=== PATIENT | female | born 1940 | race Caucasian/White ===

== ENCOUNTER 2018-03-26 14:48 | Emergency (ER) | payer MEDICARE, OTHER, SELFPAY ==
[2018-03-26 14:51] VITALS: BP 144/77; PULSE 98; RESP 18; TEMP 36.7; O2SAT 98; BMI 24.0
--- NOTE | 2018-03-26 16:37 | ED_ITS ---
HPI - Extremity Injury (Lower) General Chief Complaint: Extremity Injury, Lower Stated Complaint: THINKS LEFT LEG IS INFECTED Time Seen by Provider: 03/26/18 15:50 History of Present Illness HPI Narrative: HPI 77-year-old female with a fused left ankle 2/2 open fracture ~5 years ago presents with 2 days of left erythema, warmth, swelling, and pain. Notes normal sensation in left foot. Denies fevers, chills, or malaise. Patient's prior open fracture led to joint effusion, was complicated by osteomyelitis due to Clostridium, and ultimate resolution with vancomycin and clindamycin (per patient). ROS with no recent constitutional symptoms. Exam Gen: Pleasant, nontoxic-appearing, resting comfortably. HEENT: NC, AT, PEERL, EOMI. Resp: Unlabored respirations with a normal work of breathing. Card: Extremities warm and well perfused. GI: Non-distended. : Deferred MSK: left leg visually normal with the exception of swelling, warmth, mild erythema, and tenderness without palpable fluctuance or crepitus predominantly over the medial ankle and extending over the anterior/medial distal tib-fib. Ankle is fused. 2+ DP pulse. All toes warm and well perfused with sensation intact to touch. Bedside ultrasound demonstrates subcutaneous cobblestoning without evidence of gas, abscesses, or foreign bodies. Neuro: AO x 3, no facial asymmetry, vision and hearing WNL. Heme/Lymph: Deferred Skin: Normal color with no visible lesions (other than noted above). Psych: Mood and affect appropriate. MDM Previous chart, nursing note, and vitals reviewed. A: 77-year-old female with a fused left ankle 2/2 open fracture ~5 years ago presents with 2 days of left erythema, warmth, swelling, and pain. DDx & Evaluation: exam consistent with cellulitis, no evidence of abscess or necrotizing fasciitis. Osteomyelitis was considered on the differential, however given short duration of symptoms this is unlikely. Patient is appropriate for an initial trial of oral antibiotics with prompt PCP follow-up for repeat evaluation. No evidence of septic arthritis. Patient prescribed clindamycin as she notes positive good success with it previously in no significant side effects. Exam is not congruent with DVT. Impression: cellulitis (please reference below for remainder of encounter information) Related Data Home Medications Medication Instructions Recorded Confirmed multivitamin 1 tab PO Q DAY #0 06/02/11 03/26/18 calcium carbonate-vitamin D3 1 tab PO QDAY #0 12/30/11 03/26/18 [Oyster Shell Calcium-Vit D3] latanoprost [Xalatan] [address]p [facility] HS #0 12/30/11 03/26/18 Bioequivalent Hormone 1 tab PO QPM 03/26/18 03/26/18 montelukast 10 mg PO QPM 03/26/18 03/26/18 multivitamin 1 tab PO DAILY 03/26/18 03/26/18 Allergies Allergy/AdvReac Type Severity Reaction Status Date / Time morphine Allergy Mild NAUSEA Verified 03/26/18 14:57 oxycodone [OXYCODONE] Allergy Mild Nausea Verified 03/26/18 14:57 PFSH Surgical History History of cataract removal with insertion of prosthetic lens History of hip replacement Status post tonsillectomy and adenoidectomy Family History Father CAD (coronary artery disease) Alcoholism Mother CVA (cerebral infarction) Diabetes mellitus Glaucoma Sister Alcoholism Social History Smoking Status: Never smoker Exam Initial Vital Signs Initial Vital Signs: Vital Signs Temperature 98.1 F 03/26/18 14:51 Pulse Rate 98 H 03/26/18 14:51 Respiratory Rate 18 03/26/18 14:51 Blood Pressure 144/77 H 03/26/18 14:51 Pulse Oximetry 98 03/26/18 14:51 Course Vital Signs - 8 hr 03/26/18 14:51 Temperature 98.1 F Pulse Rate 98 H Respiratory Rate 18 Blood Pressure 144/77 H Pulse Oximetry 98 Discharge Plan Departure Prescriptions: No Action multivitamin Tablet 1 tab PO Q DAY Qty: 0 RF: 0 latanoprost [Xalatan] 0.005 % drops 1 drp OPH[facility] HS Qty: 0 RF: 0 calcium carbonate-vitamin D3 [Oyster Shell Calcium-Vit D3] 1,250 MG/200 IU tablet 1 tab PO QDAY Qty: 0 RF: 0 multivitamin Tablet 1 tab PO DAILY RF: 0 montelukast 10 mg Tablet 10 mg PO QPM RF: 0 Bioequivalent Hormone 1 tab PO QPM RF: 0
[2018-03-26 16:53] VITALS: BP 137/83; PULSE 95; RESP 14; O2SAT 97
--- NOTE | 2018-03-26 17:17 | PC.NURSE ---
pt requesting to speak to provider before depart. Pt requesting blood work. Provider aware no new orders at this time.
[2018-03-26] MEDS: CLINDAMYCIN 150 MG CAPSULE 450 MG PO (17:22)
[2018-03-26 17:31] LABS: Add Manual Diff / Slide Review NO; Basophils Percent Auto 1.8 % (0-2); Eosinophils Percent Auto 1.4 % (2-4); Hematocrit 38.6 % (36-46); Hemoglobin 13.2 g/dL (12.0-16.0); Lymphocytes Percent Auto 13.7 % (25-40); Mean Corpuscular HGB Conc 34.3 % (30-36); Mean Corpuscular Hemoglobin 32.9 PG (26-34); Mean Corpuscular Volume 95.9 fL (80-100); Monocytes Percent Auto 11.2 % (3-14); Neutrophils Absolute Auto 7200 /uL (3000-5900); Neutrophils Percent Auto 71.9 % (50-75); Platelet Count 332 X10^3/uL (150-400); Red Blood Cell Count 4.02 X10^6/uL (4.0-5.2); Red Cell Distribution Width 12.8 % (11.6-14.8); White Blood Cell Count 10.1 X10^3/uL (4.5-11.0)
[2018-03-26 17:36] LABS: Blood Urea Nitrogen 15 mg/dL (7-17); Calcium 9.1 mg/dL (8.4-10.2); Carbon Dioxide 25 mmol/L (22-32); Chloride 104 mmol/L (98-107); Estimated Glomerular Filt Rate > 60.0 mL/min (>60); Glucose 108 mg/dL (80-110); HEMOLYSIS < 15 (0-50); Potassium 3.7 mmol/L (3.4-5.1); Sodium 141 mmol/L (137-145)
[2018-03-26 17:57] LABS: Procalcitonin < 0.05 ng/mL (<0.5)
== END 2018-03-26 18:14 | disposition home or self-care (01) ==
PROVIDERS: Emergency Medicine; Emergency Provider Emergency Medicine; Family Provider Acupuncturist; PCP Family Medicine
DX: L03.116 Cellulitis of left lower limb (principal)
CPT/HCPCS: 36591; 80048; 84145; 85025; 87040; 99282; 99283

== ENCOUNTER → 2018-03-30 14:44 | Outpatient (CLI) | payer MEDICARE, OTHER, SELFPAY ==
--- NOTE | 2018-03-30 14:48 | DI.RAD.S_ITS ---
PROCEDURE: XR ANKLE LT MIN 3V INDICATIONS: left ankle swelling h/o osteomyelitis TECHNIQUE: 3 views of the ankle were acquired. COMPARISON: Outside Facility, [facility], XR ANKLE 3V LEFT, 08/01/2012, 11:33. FINDINGS: Bones: Healed fracture deformity involving the distal radial metaphysis and distal fibula. There is fusion of the tibiotalar joint. Mild subtalar joint narrowing. Multiple lucencies involving the distal tibia likely related to remove surgical hardware. Periosteal reaction along the distal aspect of the tibia as well as the fibula suggestive of chronic osteomyelitis. No definitive bone erosion seen. Soft tissues are mottled in appearance. Soft tissues: No tibiotalar joint effusion. Achilles tendon appears normal. IMPRESSION: Healed fracture deformities of the distal tibia and fibula with fusion of the tibiotalar joint. Periosteal reaction along the distal fibula and tibia which may be related to chronic osteomyelitis. Correlate clinically. Although no bony erosions are seen, plain film radiography is relatively insensitive in the early detection of acute osteomyelitis and may not demonstrate radiographic change for 15 days. Indicated MRI or nuclear medicine bone scan could be performed. Mottled appearance of the soft tissues and cellulitis cannot be excluded. Recommend direct visualization. Dictated by: Amaury HUNT Interpreted: Dimitrios Eaton MD on 03/30/2018 at 15:14 Approved by: Dimitrios Eaton M.D. on 04/02/2018 at 9:50
[2018-03-30 15:19] LABS: Add Manual Diff / Slide Review NO; Basophils Percent Auto 1.5 % (0-2); Eosinophils Percent Auto 2.8 % (2-4); Hematocrit 36.7 % (36-46); Hemoglobin 12.4 g/dL (12.0-16.0); Lymphocytes Percent Auto 13.1 % (25-40); Mean Corpuscular HGB Conc 33.8 % (30-36); Mean Corpuscular Hemoglobin 31.5 PG (26-34); Mean Corpuscular Volume 93.4 fL (80-100); Neutrophils Absolute Auto 6700 /uL (3000-5900); Neutrophils Percent Auto 70.6 % (50-75); Platelet Count 417 X10^3/uL (150-400); Red Blood Cell Count 3.93 X10^6/uL (4.0-5.2); Red Cell Distribution Width 12.5 % (11.6-14.8); White Blood Cell Count 9.5 X10^3/uL (4.5-11.0)
[2018-03-30 15:36] LABS: Erythrocyte Sedimentation Rate 33 MM/HR (0-20)
[2018-03-30 16:50] LABS: C-Reactive Protein Quant 7.8 mg/dL (<1.0)
== END ==
PROVIDERS: PCP Family Medicine; Visit Provider Family Medicine
DX: L03.90 Cellulitis, unspecified (principal)
CPT/HCPCS: 36415; 73610; 85025; 85651; 86140

== ENCOUNTER → 2018-04-06 11:38 | Outpatient (CLI) | payer MEDICARE, OTHER, SELFPAY | PROVIDERS: Family Provider Acupuncturist; PCP Family Medicine; Visit Provider Family Medicine | DX: L03.90 Cellulitis, unspecified (principal); M86.9 Osteomyelitis, unspecified | CPT/HCPCS: 87070; 87077; 87147; 87186; 87205 ==

== ENCOUNTER → 2018-04-06 12:35 | Outpatient (CLI) | payer MEDICARE, OTHER, SELFPAY ==
--- NOTE | 2018-04-06 | OV.WND_ITS ---
Progress Note Details Patient Name: Maggie Lea Patient Number: [id number] PatientPatientDate: 04/06/2018 Clinician: Joslyn Kumari Clinician Cosigner: Shivani Lopez Physician / Food Service Lead: Shravan Guajardo SUBJECTIVE Chief Complaint This information was obtained from the patient Cellulitis of left lower extremity. Allergies oxycodone (Severity: Moderate, Reaction: nausea), morphine (Severity: Mild, Reaction: nausea) HPI This information was obtained from the patient The following HPI elements were documented for the patient's wound: Location: left leg Quality: surgical Severity: moderate Timing: constant 04/06/18. Seen by Dr. Guajardo. The patient was last seen in our clinic in 2011 for osteomyelitis of the distal left lo leg. About 10 days ago she developed cellulitis in this area and was started on clindamycin in our ER. On follow with her PCP today the area was draining and she was subsequently referred urgently to our clinic for review. S feels the lower leg erythema has improved considerably since starting clindamycin and she does not report feve or pain when bearing weight. She does report some pain along the Achilles tendon and reports that during her episode of osteomyelitis she had previously placed hardware removed. She also underwent hyperbaric oxygen therapy at the time. 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 Family History This information was obtained from the patient Cancer - Maternal Grandparents, Diabetes - Mother, Maternal Grandparents, Heart Disease - Mother, Father, Hypertension - Mother, Father, Stroke - Mother Social History This information was obtained from the patient Never smoker, Alcohol Use - 1/day, Caffeine Use - 2/day, Children - 2, Lives in - Private home, Marital Status - Single, Retired Past Medical History This information was obtained from the patient Patient has a medical history of: Asthma Glaucoma (Right Eye) Nasal Polyp-Right Nares Distal Fibula/Tibia Fracture Osteomyelitis (Left ankle) Surgical History This information was obtained from the patient Patient has a surgical history of: Tonsils and adenoids (As a child) THR Right - 07/07/2012 (Dr. Aguirre) OSS - 07/07/2011 Left Tibia fracture - 12/22/2011 (With [facility] Dr. Gaxiola) Bilateral cataracts with lense implants (In her 40's ) Complaints and Symptoms This information was obtained from the patient Patient complains of: General Notes: I have reviewed and concur with the Review of Systems and Past Family Social History documen completed by the clinician, I have reviewed and concur with the Wound Assessment document completed by th clinician Cardiovascular (Central/Peripheral): Lower extremity (leg) swelling Integumentary (Hair/Skin/Nails): Open Sore Musculoskeletal: Deformities Prior Wound History: Drainage, Erythema, Pain Patient denies complaints or symptoms related to: Constitutional Symptoms (General Health): Chills, Fever Ear/Nose/Mouth/Throat: Hearing Loss / Aid Neurological: Loss of Protective Sensation Psychiatric: Memory Loss Respiratory: Shortness of Breath General Notes: Believes she is up to date on tetanus. Medications Antacid (calcium carbonate) 200 mg calcium (500 mg) chewable tablet oral 1 1 tablet,chewable oral once daily lactobacillus acidophilus (bulk) 1 billion unit/gram powder miscellaneous 4 4 powder miscellaneous once daily Calcitrate-Vitamin D 315 mg-250 unit tablet oral 1 1 tablet oral once daily montelukast 10 mg tablet oral 1 1 tablet oral take at bedtime clindamycin HCl 150 mg capsule oral 1 1 capsule oral every 6 hours as needed Xalatan 0.005 % eye drops ophthalmic (eye) 1 1 drops ophthalmic (eye) once daily Adult One Daily Multivitamin 0.4 mg tablet oral tablet oral OBJECTIVE Constitutional BP elevated; Low grade fever; Alert and in no distress. Well developed. Alert. Clean appearing.. Height/Length: in (162.56 cm), Weight: 144.5 lbs (65.68 kgs), BMI: 24.8, Temperature: 99.0 ?F ( 37.22 ?C), Pulse: 88 bpm, Respiratory Rate: 16 breaths/min, Blood Pressure: 142/72 mmHg, Pulse Oximetry: 96 %. Ears, Nose, Mouth, and Throat: No clinically significant hearing loss on informal examination. Respiratory: No respiratory distress. Even respirations and without use of accessory muscles.. Cardiovascular: 1+ left lower extremity edema. Gastrointestinal (GI): Non-obese. Nondistended.. Musculoskeletal: Significant anterior left lower leg scar. Integumentary (Hair, Skin) Refer to appropriate clinician wound documentation for this visit; left distal lower leg ulcer extends to deep subc seropurulent drainage noted on probing; surrounding tissue edematous and fluctuant consistent with abscess. Wound #1 Left, Medial Leg is an acute Full Thickness Cellulitis and has received a status of Not Healed. Initial wound encounter measurements are 0.3cm length x 0.3cm width x 0.8cm depth, with an area of 0.09 sq cm an volume of 0.072 cubic cm. No tunneling has been noted. No sinus tract has been noted. No undermining has be noted. There is a copious amount of serous drainage noted which has no odor. The patient reports a wound louie level 0/10. The wound margin is attached. Wound bed has No epithelialization, No eschar, Yes slough, Yes brigh red, firm granulation. The periwound skin moisture is normal. The periwound skin color is normal. The periwound skin exhibited: Jorge The periwound skin did not exhibit: Brawny Induration, Excoriation, Induration, Callus, Crepitus, Fluctuance, Friable, Rash. The temperature of the periwound skin is Warm. Periwound skin does not exhibit signs or sympto of infection. Local Pulse is Palpable. Neurological: Cranial nerves grossly intact with symmetric function normal by informal observation.. 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 - In clinic only. Cleanser Cleanse Wound: - Normal saline and gauze. May use distilled water at home. May Shower. - Must cover in shower with cast protector (can be purchased at any local drug store) or plastic ba and tape. Dressings Cover and secure with: - Superabsorbent dressing, secured with conform wrap gauze. May use poise pads or ABD pads at home. Change Dressing: - Daily or more as needed to control drainage. Additional Orders: Follow-Up Appointments Return Appointment: - - Middle of next week. Other information: If you develop fever, chills, increased pain, drainage, redness or swelling please call our offi If after hours, respond to the ER. Should you experience any significant changes in your wound(s) or have any questions regarding your home care instructions please contact the wound center @ [phone]. If after keara contact your primary care physician or go to the hospital emergency room. Scribing Attestation I attest, as the nurse, that I scribed these orders for the physician. Laboratory: Culture Wound - Will call with culture results if any changes in antibiotics are required. General Notes: Referral being sent to an orthopedic surgeon in regards to a consult for surgical debridement of abscess. Please continue taking your clindamycin as prescribed. Supply order submitted through [employer]. Dressings should be delivered in the next 1-2 days. I've reviewed the clinician's documentation and agree with the evaluation and plan as written. Also, the patient refilled her clindamycin Rx for another 10 days. I've taken a deep wound culture and will adjust antibiotics accordingly. She also has an MRI scheduled for 04/17/18 however I'm referring her urgently to orthopedics for consideration of deep debridement with the possibility of recurrent chronic osteomyelitis. Electronic Signature(s) Signed By: Date: Shravan Guajardo MD 04/10/2018 12:06:17 Entered By: Shravan Guajardo on 04/08/2018 16:24:16
== END ==
PROVIDERS: Family Provider Acupuncturist; PCP Family Medicine; Visit Provider Internal Medicine
DX: L03.116 Cellulitis of left lower limb (principal); L97.822 Non-pressure chronic ulcer of other part of left lower leg with fat layer exposed
CPT/HCPCS: 87070; 87075; 87077; 87147; 87186; 87205; 99213

== ENCOUNTER → 2018-04-10 10:19 | Outpatient (CLI) | payer MEDICARE, OTHER, SELFPAY ==
--- NOTE | 2018-04-10 | OV.WND_ITS ---
Progress Note Details Patient Name: Maggie Lea Patient Number: [id number] PatientPatientDate: 04/10/2018 Clinician: Joslyn Kumari Clinician Cosigner: Shivani Lopez Physician / Investigation Division Captain: Shravan Guajardo SUBJECTIVE Chief Complaint This information was obtained from the patient Cellulitis of left lower extremity. Allergies oxycodone (Severity: Moderate, Reaction: nausea), morphine (Severity: Mild, Reaction: nausea) HPI This information was obtained from the patient The following HPI elements were documented for the patient's wound: Location: left leg Quality: surgical Severity: moderate Timing: constant 04/10/18. Seen by Dr. Guajardo. The patient feels the left lower leg swelling and pain have improved considerably si her visit last week as has the drainage from the overlying ulcer which appears to have resulted from an underly abscess that's now drainage spontaneously. She's scheduled to see Dr. Martines this Monday due to her history o chronic osteomyelitis at this site and states she had to reschedule her MRI that was moved forward to [facility] [place] 04/06/18. Seen by Dr. Guajardo. The patient was last seen in our clinic in 2011 for osteomyelitis of the distal left lo leg. About 10 days ago she developed cellulitis in this area and was started on clindamycin in our ER. On follow with her PCP today the area was draining and she was subsequently referred urgently to our clinic for review. S feels the lower leg erythema has improved considerably since starting clindamycin and she does not report feve or pain when bearing weight. She does report some pain along the Achilles tendon and reports that during her episode of osteomyelitis she had previously placed hardware removed. She also underwent hyperbaric oxygen therapy at the time. 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 Past Medical History This information was obtained from the patient Patient has a medical history of: Asthma Glaucoma (Right Eye) Nasal Polyp-Right Nares Distal Fibula/Tibia Fracture Osteomyelitis (Left ankle) Complaints and Symptoms This information was obtained from the patient Patient complains of: General Notes: I have reviewed and concur with the Review of Systems and Past Family Social History documen completed by the clinician, I have reviewed and concur with the Wound Assessment document completed by th clinician Cardiovascular (Central/Peripheral): Lower extremity (leg) swelling Integumentary (Hair/Skin/Nails): Open Sore Musculoskeletal: Deformities Prior Wound History: Drainage, Erythema, Pain Patient denies complaints or symptoms related to: Constitutional Symptoms (General Health): Chills, Fever Ear/Nose/Mouth/Throat: Hearing Loss / Aid Neurological: Loss of Protective Sensation Psychiatric: Memory Loss Respiratory: Shortness of Breath OBJECTIVE Constitutional BP elevated; Low grade fever; Alert and in no distress. Well developed. Alert. Clean appearing.. Height/Length: in (162.56 cm), Weight: 144.5 lbs (65.68 kgs), BMI: 24.8, Temperature: 99.0 ?F ( 37.22 ?C), Pulse: 95 bpm, Respiratory Rate: 16 breaths/min, Blood Pressure: 141/74 mmHg, Pulse Oximetry: 94 %. Ears, Nose, Mouth, and Throat: No clinically significant hearing loss on informal examination. Respiratory: No respiratory distress. Even respirations and without use of accessory muscles.. Cardiovascular: 1+ left lower extremity edema. Integumentary (Hair, Skin) No periwound erythema, warmth, or significant drainage. No periwound rashes appreciated or noted otherwise. Refer to appropriate clinician wound documentation for this visit; left lower leg ulcer extends to subcut with bas partially covered with pink granulation, remainder fibrin and slough. Wound #1 Left, Medial Leg is an acute Full Thickness Cellulitis and has received a status of Not Healed. Subseq wound encounter measurements are 0.6cm length x 0.5cm width x 0.3cm depth, with an area of 0.3 sq cm and volume of 0.09 cubic cm. No tunneling has been noted. No sinus tract has been noted. No undermining has bee noted. There is a moderate amount of serosanguineous drainage noted which has no odor. The patient reports wound pain of level 0/10. The wound margin is attached. Wound bed has No epithelialization, Yes eschar, Yes slough, Yes bright red, firm granulation. The periwound skin color is normal. The periwound skin exhibited: Edema, Dry/ Scaly. The periwound skin did n exhibit: Brawny Induration, Excoriation, Induration, Callus, Crepitus, Fluctuance, Friable, Rash, Moist, Maceratio The temperature of the periwound skin is Warm. Periwound skin does not exhibit signs or symptoms of infection Local Pulse is Palpable. Neurological: Cranial nerves grossly intact with symmetric function normal by informal observation.. 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 A Chemical Cauterization procedure was performed by Shravan Guajardo MD. General Notes: Silver nitrate to bleeding pin point area on distal aspect of wound. No debridement done. PLAN Wound Orders: Wound #1 Left, Medial Leg Anesthetic Topical Xylocaine to wound bed. - In clinic only. Cleanser Cleanse Wound: - Normal saline and gauze. May use distilled water at home. May Shower. - Must cover in shower with cast protector (can be purchased at any local drug store) or plastic ba and tape. Dressings Cover and secure with: - Superabsorbent dressing, secured with conform wrap gauze. Change Dressing: - Every other day. Additional Orders: Follow-Up Appointments Return Appointment: - - One week. Other information: If you develop fever, chills, increased pain, drainage, redness or swelling please call our offi If after hours, respond to the ER. Should you experience any significant changes in your wound(s) or have any questions regarding your home care instructions please contact the wound center @ [phone]. If after keara contact your primary care physician or go to the hospital emergency room. Scribing Attestation I attest, as the nurse, that I scribed these orders for the physician. General Notes: Surgical consult scheduled for Monday, please call and reschedule follow-up appointment with us if surgery appointment will conflict. I've reviewed the clinician's documentation and agree with the evaluation and plan as written. Also, the patient follow up with Dr. Martines as scheduled, continue on her clindamycin, and try to reschedule her MRI prior to Monday's appointment. Electronic Signature(s) Signed By: Date: Shravan Guajardo MD 04/11/2018 06:50:35 Entered By: Shravan Guajardo on 04/11/2018 06:43:54
== END ==
PROVIDERS: Family Provider Acupuncturist; PCP Family Medicine; Visit Provider Internal Medicine
DX: L97.822 Non-pressure chronic ulcer of other part of left lower leg with fat layer exposed (principal); L02.416 Cutaneous abscess of left lower limb; M86.662 Other chronic osteomyelitis, left tibia and fibula
CPT/HCPCS: 99212

== ENCOUNTER → 2018-04-16 09:57 | Outpatient (CLI) | payer MEDICARE, OTHER, SELFPAY ==
[2018-04-16 11:39] LABS: Blood Urea Nitrogen 12 mg/dL (7-17); Estimated Glomerular Filt Rate > 60.0 mL/min (>60)
--- NOTE | 2018-04-16 17:55 | DI.MRI.S_ITS ---
PROCEDURE: MR ANKLE LT WO/W CON INDICATIONS: Left ankle swelling and pain TECHNIQUE: Noncontrast sagittal T1 spin echo and T2 fast spin echo with fat saturation, axial proton density fast spin echo and T2 fast spin echo with fat saturation, axial T1 spin echo with fat saturation, coronal T1 spin echo and T2 fast spin echo with fat saturation through the ankle/hindfoot. Post-contrast axial, coronal, and sagittal T1 spin echo with fat saturation through the ankle/hindfoot. COMPARISON: [facility], CR, XR ANKLE LT MIN 3V, 03/30/2018, 14:32. [facility], CR, XR ANKLE 3 VIEWS WEIGHT BEARING LEFT, 04/13/2018, 10:39. FINDINGS: Image quality: Limited evaluation due to extensive postsurgical and degenerative changes comment in addition to micro-susceptibility artifact from prior surgery.. Bones and joints: Suboptimal evaluation due to extensive degenerative and postsurgical changes however no discrete suspicious osseous enhancement. No bone marrow contusions or fractures. There is chronic deformity of the hindfoot, distal tibia and fibula. There is prominent enteral signal change involving the distal tibia for example image 10 series 3 however there is minimal associated T2 hyperintensity or enhancement. This area measures approximately 2.5 x 1.4 cm on sagittal image 9 series 3. There is overlying skin thickening and signal change/edema. There is loss of the overlying cortex. Osseous fusion of the tibiotalar joint, chronic. Subtalar joint degeneration is present. There is diffuse circumferential hindfoot subcutaneous cellulitis and skin thickening. No discrete rim-enhancing abscess is seen. Scattered superficial fascial fluid. Medial structures: The posterior tibialis, flexor digitorum longus, and flexor hallucis longus tendons are intact. The posterior tibial neurovascular bundle appears normal within the tarsal tunnel, without extrinsic mass effect. The deep layer (anterior and posterior tibiotalar ligaments) and superficial layer (tibionavicular, tibiospring, and tibiocalcaneal ligaments) of the deltoid ligament appear normal. The spring ligament components (superomedial calcaneonavicular, medioplantar oblique calcaneonavicular, and inferoplantar longitudinal ligaments) are intact. Lateral structures: The anterior talofibular, calcaneofibular, and posterior talofibular ligaments appear intact. More superiorly, the anterior and posterior tibiofibular ligaments appear intact, as is the intermalleolar ligament. The tibiofibular syndesmosis is normal in width at 2 mm or less. The peroneus longus and brevis tendons demonstrate normal location and morphology. Adjacent bony peroneal tubercle and retrotrochlear prominence are normal in size. The sinus tarsi demonstrates normal fatty signal, without edema, fibrosis, or cyst formation. Visualized sinus tarsi components (cervical ligament, interosseous talocalcaneal ligament, roots of the inferior extensor retinaculum) appear normal. The calcaneonavicular and calcaneocuboid components of the bifurcate ligament appear intact. The dorsal calcaneocuboid ligament appears intact. Anterior structures: The tibialis anterior appears thickened suggesting a tendinopathy or prior strain of this is low in signal/chronic. The extensor hallucis longus, and extensor digitorum longus tendons appear intact. The dorsal talonavicular ligament appears intact. Posterior and plantar structures: Achilles tendon is intact. Medial and lateral bands of the plantar fascia are of normal thickness. No abductor digiti quinti muscle atrophy to suggest Posey neuropathy. The IMPRESSION: Severely limited examination due to postsurgical changes and associated micro-metallic susceptibility artifact which partially obscures the distal tibia and hindfoot. Prominent signal change (primarily on T1-weighted images) involving the anterior distal tibial metaphysis, for example image 10 series 3 however this demonstrates sclerotic margins suggestive of chronic nature, and minimal if any T2 hyperintensity/edema. There is minimal if any peripheral enhancement for example image 12 series 10. This could represent a focus of indolent or possibly partially treated osteomyelitis. Please correlate clinically. If clinical uncertainty persists, consider triple phase bone scan or continued surveillance with repeat MRI with and without contrast in 6 weeks. Elsewhere no discrete suspicious marrow signal changes or enhancement to suggest osteomyelitis. Diffuse hindfoot and distal tibial/fibular subcutaneous edema and skin thickening in keeping with cellulitis. No discrete rim-enhancing abscess is seen. Chronic anterior tibialis tendinopathy. Dictated by: Nick Cavazos M.D. on 04/17/2018 at 8:49 Approved by: Nick Cavazos M.D. on 04/17/2018 at 9:04
== END ==
PROVIDERS: Family Provider Acupuncturist; PCP Family Medicine; Visit Provider Family Medicine
DX: L03.116 Cellulitis of left lower limb (principal); M25.572 Pain in left ankle and joints of left foot; M25.472 Effusion, left ankle
CPT/HCPCS: 36415; 73723; 82565; 84520; 87070; 87077; 87147; 87186; 87205; 99213; A9579

== ENCOUNTER → 2018-04-16 10:18 | Outpatient (CLI) | payer MEDICARE, OTHER, SELFPAY | PROVIDERS: Family Provider Acupuncturist; PCP Family Medicine; Visit Provider Internal Medicine | DX: L97.822 Non-pressure chronic ulcer of other part of left lower leg with fat layer exposed (principal); L02.416 Cutaneous abscess of left lower limb | CPT/HCPCS: 87070; 87205 ==

== ENCOUNTER → 2018-05-10 14:57 | Outpatient (CLI) | payer MEDICARE, OTHER, SELFPAY ==
--- NOTE | 2018-05-10 | OV.WND_ITS ---
Progress Note Details Patient Name: Maggie Lea Patient Number: [id number] PatientPatientDate: 05/10/2018 Clinician: Joslyn Kumari Clinician Cosigner: Shivani Lopez Physician / Lime Spreader: Shravan Guajardo SUBJECTIVE Chief Complaint This information was obtained from the patient Cellulitis of left lower extremity. Allergies oxycodone (Severity: Moderate, Reaction: nausea), morphine (Severity: Mild, Reaction: nausea) HPI This information was obtained from the patient The following HPI elements were documented for the patient's wound: Location: left leg Quality: surgical Severity: moderate Timing: constant 05/10/18. Seen by Dr. Guajardo. The patient returns to clinic after seeing Dr. 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 Dr. Martines reportedly advised the patient on possible surgical options and the patient requested a second opinion subsequently choosing to defer surgical debridement. Of note, her antibiotics were held about 3 weeks ago just prior to her appointment with Dr. Martines and she states she's not restarted them in the interim. She was on clindamycin which was effective at reducing her leg swelling, erythema, and drainage at the time. 04/16/18. Seen by Dr. Guajardo. The patient continues on clindamycin for possible chronic osteomyelitis of the left lower leg and does not report pain, increased drainage from the overlying non- pressure ulcer, nor fevers or fee unwell otherwise. She was seen by Dr. Martines who will await results of the MRI scheduled for this afternoon t decide upon possible surgical debridement and bone culture. 04/10/18. Seen by Dr. Guajardo. The patient feels the left lower leg swelling and pain have improved considerably si her visit last week as has the drainage from the overlying ulcer which appears to have resulted from an underly abscess that's now drainage spontaneously. She's scheduled to see Dr. Martines this Monday due to her history o chronic osteomyelitis at this site and states she had to reschedule her MRI that was moved forward to our [facility] [place] 04/06/18. Seen by Dr. Guajardo. The patient was last seen in our clinic in 2011 for osteomyelitis of the distal left lo leg. About 10 days ago she developed cellulitis in this area and was started on clindamycin in our ER. On follow with her PCP today the area was draining and she was subsequently referred urgently to our clinic for review. S feels the lower leg erythema has improved considerably since starting clindamycin and she does not report feve or pain when bearing weight. She does report some pain along the Achilles tendon and reports that during her episode of osteomyelitis she had previously placed hardware removed. She also underwent hyperbaric oxygen therapy at the time. 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 Past Medical History This information was obtained from the patient Patient has a medical history of: Asthma Glaucoma (Right Eye) Nasal Polyp-Right Nares Distal Fibula/Tibia Fracture Osteomyelitis (Left ankle) Complaints and Symptoms This information was obtained from the patient Patient complains of: General Notes: I have reviewed and concur with the Review of Systems and Past Family Social History documen completed by the clinician, I have reviewed and concur with the Wound Assessment document completed by th clinician Cardiovascular (Central/Peripheral): Lower extremity (leg) swelling Integumentary (Hair/Skin/Nails): Open Sore Musculoskeletal: Deformities Prior Wound History: Drainage, Erythema, Pain Patient denies complaints or symptoms related to: Constitutional Symptoms (General Health): Chills, Fever Ear/Nose/Mouth/Throat: Hearing Loss / Aid Neurological: Loss of Protective Sensation Psychiatric: Memory Loss Respiratory: Shortness of Breath OBJECTIVE Constitutional BP elevated; Low grade fever; Alert and in no distress. Well developed. Alert. Clean appearing.. Height/Length: in (162.56 cm), Weight: 144.5 lbs (65.68 kgs), BMI: 24.8, Temperature: 99.6 ?F ( 37.56 ?C), Pulse: 97 bpm, Respiratory Rate: 18 breaths/min, Blood Pressure: 155/86 mmHg, Pulse Oximetry: 96 %. Ears, Nose, Mouth, and Throat: No clinically significant hearing loss on informal examination. Respiratory: No respiratory distress. Even respirations and without use of accessory muscles.. Cardiovascular: Pedal pulses 2+ on affected limb. 1+ left lower extremity edema. Musculoskeletal: Left distal lower leg angie deformity. Integumentary (Hair, Skin) No periwound erythema, warmth, or significant drainage. No periwound rashes appreciated or noted otherwise. Refer to appropriate clinician wound documentation for this visit; left lower leg ulcers extend to subcut with bas covered with pink necrotic fibrin and slough; minimal purulent drainage. Wound #1 Left, Medial Leg is an acute Abscess and has received a status of Not Healed. Subsequent wound encounter measurements are 0.5cm length x 0.5cm width x 0.4cm depth, with an area of 0.25 sq cm and a vol of 0.1 cubic cm. No tunneling has been noted. No sinus tract has been noted. No undermining has been noted. There is a moderate amount of serosanguineous drainage noted which has no odor. The patient reports a woun pain of level 0/10. The wound margin is attached. Wound bed has No epithelialization, No eschar, Yes slough, N granulation. The periwound skin color is normal. The periwound skin exhibited: Edema, Dry/ Scaly. The periwound skin did n exhibit: Brawny Induration, Excoriation, Induration, Callus, Crepitus, Fluctuance, Friable, Rash, Moist, Maceratio The temperature of the periwound skin is Warm. Periwound skin does not exhibit signs or symptoms of infection Local Pulse is Palpable. Wound #2 Left, Medial, Anterior Leg is an acute Abscess and has received a status of Not Healed. Initial wound encounter measurements are 0.4cm length x 0.3cm width x 0.5cm depth, with an area of 0.12 sq cm and a vol of 0.06 cubic cm. No tunneling has been noted. No sinus tract has been noted. No undermining has been noted There is a moderate amount of purulent drainage noted which has no odor. The patient reports a wound pain o level 0/10. The wound margin is attached. Wound bed has No epithelialization, No eschar, Yes slough, No granulation. The periwound skin moisture is normal. The periwound skin color is normal. The periwound skin exhibited: Jorge The periwound skin did not exhibit: Brawny Induration, Excoriation, Induration, Callus, Crepitus, Fluctuance, Friable, Rash. The temperature of the periwound skin is WNL. Periwound skin does not exhibit signs or symptom of infection. Local Pulse is Palpable. Neurological: Cranial nerves grossly intact with symmetric function normal by informal observation.. 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 A skin/subcutaneous tissue level surgical debridement w a total area debrided of 0.25 sq cm was performed by Shravan Guajardo MD. Subcutaneous was removed along with devitalized tissue: exudate and slough. The following instrument(s) were used: curette. Pain control was achieved using 4% Lido. A time out was conducted prior to the start of the procedure. A minimal amount of bleeding was controlled with n/a. The procedure was tolerated well with a pain level of 0 throughout and a pain level of 0 following the procedure. Post Debridement Measurements: 0.5cm length x 0.5cm width x 0.6cm dept with an area of 0.25 sq cm and a volume of 0.15 cubic cm; Additional Information Muscle fascia or bone removed and sent to pathology?: No PLAN Wound Orders: Wound #1 Left, Medial Leg Anesthetic Topical Xylocaine to wound bed. - In clinic only. Cleanser Cleanse Wound: - Normal saline and gauze. May use distilled water at home. May Shower. - Must cover in shower with cast protector or plastic bag and tape. Dressings Cover and secure with: - Sorbion absorbent dressing secured with conform wrap gauze. Change Dressing: - Every three days. Wound #2 Left, Medial, Anterior Leg Anesthetic Topical Xylocaine to wound bed. - In clinic only. Cleanser Cleanse Wound: - Normal saline and gauze. May use distilled water at home. May Shower. - Must cover in shower with cast protector or plastic bag and tape. Dressings Cover and secure with: - Sorbion absorbent dressing secured with conform wrap gauze. Change Dressing: - Every three days. Additional Orders: Follow-Up Appointments Return Appointment: - - One week. Other information: If you develop fever, chills, increased pain, drainage, redness or swelling please call our offi If after hours, respond to the ER. Should you experience any significant changes in your wound(s) or have any questions regarding your home care instructions please contact the wound center @ [phone]. If after keara contact your primary care physician or go to the hospital emergency room. Scribing Attestation I attest, as the nurse, that I scribed these orders for the physician. Laboratory: Culture Wound I've reviewed the clinician's documentation and agree with the evaluation and plan as written. In addition the patient's ulcers demonstrate evidence of non-viable devitalized tissue and they will continue to benefit from sha debridement to help promote granulation and expedite healing. Also, I've taken a wound culture today and advised the patient to restart clindamycin. Antibiotics will be adjuste based on the culture results and should be continued for at least 6 weeks from today. We've also discussed the the tissue beneath the ulcers may not be viable and deep debridement may still be required to facilitate healing Electronic Signature(s) Signed By: Date: Shravan Guajardo MD 05/11/2018 09:38:07 Entered By: Shravan Guajardo on 05/11/2018 06:23:04
== END ==
PROVIDERS: Family Provider Acupuncturist; PCP Family Medicine; Visit Provider Internal Medicine
DX: L97.822 Non-pressure chronic ulcer of other part of left lower leg with fat layer exposed (principal); L02.416 Cutaneous abscess of left lower limb; M86.462 Chronic osteomyelitis with draining sinus, left tibia and fibula
CPT/HCPCS: 11042; 87070; 87075; 87077; 87186; 87205

== ENCOUNTER → 2018-05-18 09:01 | Outpatient (CLI) | payer MEDICARE, OTHER, SELFPAY ==
--- NOTE | 2018-05-18 | OV.WND_ITS ---
Progress Note Details Patient Name: Maggie Lea Patient Number: [id number] PatientPatientDate: 05/18/2018 Clinician: Joslyn Kumari Clinician Cosigner: Shivani Lopez Physician / Blueberry Grower: Shravan Guajardo SUBJECTIVE Chief Complaint This information was obtained from the patient Cellulitis of left lower extremity. Allergies oxycodone (Severity: Moderate, Reaction: nausea), morphine (Severity: Mild, Reaction: nausea) HPI This information was obtained from the patient The following HPI elements were documented for the patient's wound: Location: left leg Quality: surgical Severity: moderate Timing: constant 05/18/18. Seen by Dr. Guajardo. The patient does not report pain or significant drainage associated with the peanut sheller left lower leg non-pressure ulcers and she continues on clindamycin for underlying chronic osteomyelitis of the distal tibia without reports fevers, adverse side effects, nor feeling unwell in general. 05/10/18. Seen by Dr. Guajardo. The patient returns to clinic after seeing Dr. 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 Dr. Martines reportedly advised the patient on possible surgical options and the patient requested a second opinion subsequently choosing to defer surgical debridement. Of note, her antibiotics were held about 3 weeks ago just prior to her appointment with Dr. Martines and she states she's not restarted them in the interim. She was on clindamycin which was effective at reducing her leg swelling, erythema, and drainage at the time. 04/16/18. Seen by Dr. Guajardo. The patient continues on clindamycin for possible chronic osteomyelitis of the left lower leg and does not report pain, increased drainage from the overlying non- pressure ulcer, nor fevers or fee unwell otherwise. She was seen by Dr. Martines who will await results of the MRI scheduled for this afternoon t decide upon possible surgical debridement and bone culture. 04/10/18. Seen by Dr. Guajardo. The patient feels the left lower leg swelling and pain have improved considerably si her visit last week as has the drainage from the overlying ulcer which appears to have resulted from an underly abscess that's now drainage spontaneously. She's scheduled to see Dr. Martines this Monday due to her history o chronic osteomyelitis at this site and states she had to res[facility] [place] 04/06/18. Seen by Dr. Guajardo. The patient was last seen in our clinic in 2011 for osteomyelitis of the distal left lo leg. About 10 days ago she developed cellulitis in this area and was started on clindamycin in our ER. On follow with her PCP today the area was draining and she was subsequently referred urgently to our clinic for review. S feels the lower leg erythema has improved considerably since starting clindamycin and she does not report feve or pain when bearing weight. She does report some pain along the Achilles tendon and reports that during her episode of osteomyelitis she had previously placed hardware removed. She also underwent hyperbaric oxygen therapy at the time. 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 Past Medical History This information was obtained from the patient Patient has a medical history of: Asthma Glaucoma (Right Eye) Nasal Polyp-Right Nares Distal Fibula/Tibia Fracture Chronic osteomyelitis (Left distal tibia) Complaints and Symptoms This information was obtained from the patient Patient complains of: General Notes: I have reviewed and concur with the Review of Systems and Past Family Social History documen completed by the clinician, I have reviewed and concur with the Wound Assessment document completed by th clinician Cardiovascular (Central/Peripheral): Lower extremity (leg) swelling Hematologic/Lymphatic: Bleeding Tendency Integumentary (Hair/Skin/Nails): Open Sore Musculoskeletal: Deformities Prior Wound History: Drainage, Erythema, Pain Patient denies complaints or symptoms related to: Constitutional Symptoms (General Health): Chills, Fever Ear/Nose/Mouth/Throat: Hearing Loss / Aid Gastrointestinal (GI): Stomach/abdominal pain Neurological: Loss of Protective Sensation Psychiatric: Memory Loss Respiratory: Shortness of Breath OBJECTIVE Constitutional BP elevated; Afebrile; Alert and in no distress. Well developed. Alert. Clean appearing.. Height/Length: 64 in (162.56 cm), Weight: 144.5 lbs (65.68 kgs), BMI: 24.8, Temperature: 97.3 ?F ( 36.28 ?C), Pulse: 91 bpm, Respiratory Rate: 18 breaths/min, Blood Pressure: 166/80 mmHg, Pulse Oximetry: 96 %. Ears, Nose, Mouth, and Throat: No clinically significant hearing loss on informal examination. Respiratory: No respiratory distress. Even respirations and without use of accessory muscles.. Cardiovascular: Pedal pulses 2+ on affected limb. 1+ left lower extremity edema. Integumentary (Hair, Skin) No periwound erythema, warmth, or significant drainage. No periwound rashes appreciated or noted otherwise. Refer to appropriate clinician wound documentation for this visit; left lower leg ulcers extend to subcut with bas partially covered with pink granulation, remainder fibrin and slough. Wound #1 Left, Medial Leg is an acute Full Thickness Abscess and has received a status of Not Healed. Subsequ wound encounter measurements are 0.7cm length x 0.4cm width x 0.4cm depth, with an area of 0.28 sq cm an volume of 0.112 cubic cm. No tunneling has been noted. No sinus tract has been noted. No undermining has be noted. There is a moderate amount of serosanguineous drainage noted which has no odor. The patient reports wound pain of level 0/10. The wound margin is attached. Wound bed has No epithelialization, No eschar, Yes slough, No granulation. The periwound skin color is normal. The periwound skin exhibited: Edema, Dry/ Scaly. The periwound skin did n exhibit: Brawny Induration, Excoriation, Induration, Callus, Crepitus, Fluctuance, Friable, Rash, Moist, Maceratio The temperature of the periwound skin is Warm. Periwound skin does not exhibit signs or symptoms of infection Local Pulse is Palpable. Wound #2 Left, Medial, Anterior Leg is an acute Full Thickness Abscess and has received a status of Not Healed Subsequent wound encounter measurements are 0.4cm length x 0.4cm width x 0.2cm depth, with an area of 0 sq cm and a volume of 0.032 cubic cm. No tunneling has been noted. No sinus tract has been noted. No undermining has been noted. There is a moderate amount of serous drainage noted which has no odor. The pat reports a wound pain of level 0/10. The wound margin is attached. Wound bed has No epithelialization, No esch Yes slough, No granulation. The periwound skin color is normal. The periwound skin exhibited: Edema, Dry/ Scaly. The periwound skin did n exhibit: Brawny Induration, Excoriation, Induration, Callus, Crepitus, Fluctuance, Friable, Rash, Moist, Maceratio The temperature of the periwound skin is WNL. Periwound skin does not exhibit signs or symptoms of infection. Local Pulse is Palpable. Neurological: Cranial nerves grossly intact with symmetric function normal by informal observation.. 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 A skin/subcutaneous tissue level surgical debridement w a total area debrided of 0.35 sq cm was performed by Shravan Guajardo MD. Subcutaneous was removed along with devitalized tissue: exudate and slough. The following instrument(s) were used: curette. Pain control was achieved using 4% Lido. A time out was conducted prior to the start of the procedure. A minimal amount of bleeding was controlled with pressure. The procedure was tolerated well with a pain level of 0 throughout and a pain level of 0 following the procedure. Post Debridement Measurements: 0.7cm length x 0.5cm width x 0.5cm depth; with an area of 0.35 sq cm and a volume of 0.175 cubic cm; Wound #2 Wound #2 (Abscess) is located on the left, medial, anterior leg. A skin/ subcutaneous tissue level surgical debridement with a total area debrided of 0.2 sq cm was performed by Shravan Guajardo MD. Subcutaneous wa removed along with devitalized tissue: exudate and slough. The following instrument(s) were used: curette. Pa control was achieved using 4% Lido. A time out was conducted prior to the start of the procedure. A minimal amount of bleeding was controlled with pressure. The procedure was tolerated well with a pain level of 0 throughout and a pain level of 0 following the procedure. Post Debridement Measurements: 0.5cm length x 0.4 width x 0.4cm depth; with an area of 0.2 sq cm and a volume of 0.08 cubic cm; Additional Information Muscle fascia or bone removed and sent to pathology?: No Muscle fascia or bone removed and sent to pathology?: No PLAN Wound Orders: Wound #1 Left, Medial Leg Anesthetic Topical Xylocaine to wound bed. - In clinic only. Cleanser Cleanse Wound: - Normal saline and gauze. May use distilled water at home. May Shower. - Must cover in shower with cast protector or plastic bag and tape. Dressings Cover and secure with: - Aquacel bordered foam. Change Dressing: - Every three days. Wound #2 Left, Medial, Anterior Leg Anesthetic Topical Xylocaine to wound bed. - In clinic only. Cleanser Cleanse Wound: - Normal saline and gauze. May use distilled water at home. May Shower. - Must cover in shower with cast protector or plastic bag and tape. Dressings Cover and secure with: - Aquacel bordered foam. Change Dressing: - Every three days. Additional Orders: Compression/Edema Control Elevation of leg(s) above the level of the heart when sitting. Avoid prolonged standing in one place. Single Layer Compression Hose - Tetragrip E to left leg. On in the morning, off at night. Follow-Up Appointments Return Appointment: - - One week. Other information: If you develop fever, chills, increased pain, drainage, redness or swelling please call our offi If after hours, respond to the ER. Should you experience any significant changes in your wound(s) or have any questions regarding your home care instructions please contact the wound center @ [phone]. If after keara contact your primary care physician or go to the hospital emergency room. Scribing Attestation I attest, as the nurse, that I scribed these orders for the physician. I've reviewed the clinician's documentation and agree with the evaluation and plan as written. In addition the patient's ulcers demonstrate evidence of non-viable devitalized tissue and they will continue to benefit from sha debridement to help promote granulation and expedite healing. Also, the patient will continue on clindamycin and we'll discuss the option of hyperbaric oxygen therapy at her n visit as adjunctive treatment. Electronic Signature(s) Signed By: Date: Shravan Guajardo MD 05/21/2018 13:28:46 Entered By: Shravan Guajardo on 05/21/2018 13:24:48
== END ==
PROVIDERS: Family Provider Acupuncturist; PCP Family Medicine; Visit Provider Internal Medicine
DX: L97.822 Non-pressure chronic ulcer of other part of left lower leg with fat layer exposed (principal); M86.662 Other chronic osteomyelitis, left tibia and fibula
CPT/HCPCS: 11042

== ENCOUNTER → 2018-05-30 09:02 | Outpatient (CLI) | payer MEDICARE, OTHER, SELFPAY | PROVIDERS: Family Provider Acupuncturist; PCP Family Medicine; Visit Provider Family Medicine | DX: M86.462 Chronic osteomyelitis with draining sinus, left tibia and fibula (principal); L97.824 Non-pressure chronic ulcer of other part of left lower leg with necrosis of bone; L03.116 Cellulitis of left lower limb | CPT/HCPCS: 11044; 87070; 87075; 87077; 87147; 87186; 87205 ==

== ENCOUNTER → 2018-06-06 09:08 | Outpatient (CLI) | payer MEDICARE, OTHER, SELFPAY | PROVIDERS: Family Provider Acupuncturist; PCP Family Medicine; Visit Provider Family Medicine | DX: M86.462 Chronic osteomyelitis with draining sinus, left tibia and fibula (principal); L97.824 Non-pressure chronic ulcer of other part of left lower leg with necrosis of bone; L03.116 Cellulitis of left lower limb | CPT/HCPCS: 11044; 97597; 99212 ==

== ENCOUNTER → 2018-06-14 09:04 | Outpatient (CLI) | payer MEDICARE, OTHER, SELFPAY | PROVIDERS: Family Provider Acupuncturist; PCP Family Medicine; Visit Provider Physician Assistant Medical | DX: M86.9 Osteomyelitis, unspecified (principal); Z01.818 Encounter for other preprocedural examination | CPT/HCPCS: 93005 ==

== ENCOUNTER → 2018-06-19 09:48 | Outpatient (CLI) | payer MEDICARE, OTHER, SELFPAY | PROVIDERS: Family Provider Acupuncturist; PCP Family Medicine; Visit Provider Family Medicine | DX: L97.826 Non-pressure chronic ulcer of other part of left lower leg with bone involvement without evidence of necrosis (principal); M86.662 Other chronic osteomyelitis, left tibia and fibula | CPT/HCPCS: 11044; 99214 ==

== ENCOUNTER → 2018-06-26 08:58 | Outpatient (CLI) | payer MEDICARE, OTHER, SELFPAY | PROVIDERS: Family Provider Acupuncturist; PCP Family Medicine; Visit Provider Family Medicine | DX: M86.462 Chronic osteomyelitis with draining sinus, left tibia and fibula (principal); L97.824 Non-pressure chronic ulcer of other part of left lower leg with necrosis of bone | CPT/HCPCS: 11044; 99212 ==

== ENCOUNTER → 2020-04-02 07:35 | Outpatient (CLI) | payer MEDICARE, OTHER, SELFPAY ==
[2020-04-02 08:17] LABS: Add Manual Diff / Slide Review NO; Basophils Absolute Auto 100 /uL (0-100); Basophils Percent Auto 2.1 % (0-2); Eosinophils Absolute Auto 100 /uL (0-450); Eosinophils Percent Auto 2.5 % (2-4); Hematocrit 38.9 % (36-46); Hemoglobin 13.2 g/dL (12.0-16.0); Lymphocytes Absolute Auto 1600 /uL (1100-4500); Lymphocytes Percent Auto 28.7 % (25-40); Mean Corpuscular HGB Conc 33.9 % (30-36); Mean Corpuscular Hemoglobin 31.4 PG (26-34); Mean Corpuscular Volume 92.7 fL (80-100); Monocytes Absolute Auto 1100 /uL (0-900); Monocytes Percent Auto 19.7 % (3-14); Neutrophils Absolute Auto 2700 /uL (1500-7000); Platelet Count 261 X10^3/uL (150-400); Red Cell Distribution Width 14.1 % (11.6-14.8); White Blood Cell Count 5.7 X10^3/uL (4.5-11.0)
[2020-04-02 08:29] LABS: Alanine Aminotransferase 15 IU/L (<35); Albumin Globulin Ratio 1.5 (1.0-2.8); Alkaline Phosphatase 76 U/L (38-126); Aspartate Aminotransferase 20 IU/L (14-36); BUN Creatinine Ratio 26.2 (6-22); Bilirubin Total 0.4 mg/dL (0.2-1.3); Blood Urea Nitrogen 16 mg/dL (7-17); Calcium 9.2 mg/dL (8.4-10.2); Carbon Dioxide 28 mmol/L (22-32); Chloride 105 mmol/L (98-107); Cholesterol 147 mg/dL (140-199); Estimated Glomerular Filt Rate > 60.0 mL/min (>60); Globulin 2.6 g/dL (1.7-4.1); Glucose 112 mg/dL (80-110); HDL Cholesterol 48 mg/dL (40-60); HEMOLYSIS < 15 (0-50); LDL Cholesterol Calculated 90 mg/dL (<100); Potassium 4.6 mmol/L (3.4-5.1); Sodium 138 mmol/L (137-145); Total Protein 6.6 g/dL (6.3-8.2); Triglycerides 43 mg/dL (35-150)
[2020-04-02 09:19] LABS: Vitamin B12 948 pg/mL (239-931)
== END ==
PROVIDERS: Family Provider Acupuncturist; PCP Naturopath; Referring Provider Naturopath; Visit Provider Naturopath
DX: R79.89 Other specified abnormal findings of blood chemistry (principal); Z00.00 Encounter for general adult medical examination without abnormal findings
CPT/HCPCS: 36415; 80053; 80061; 82607; 85025

== ENCOUNTER → 2020-04-27 08:59 | Outpatient (CLI) | payer MEDICARE, OTHER, SELFPAY ==
--- NOTE | 2020-04-27 | DI.MRI.S_ITS ---
PROCEDURE: MR ANKLE LT WO/W CON INDICATIONS: Chronic osteomyelitis with draining sinus TECHNIQUE: Noncontrast sagittal T1 spin echo and T2 fast spin echo with fat saturation, axial proton density fast spin echo and T2 fast spin echo with fat saturation, axial T1 spin echo with fat saturation, coronal T1 spin echo and T2 fast spin echo with fat saturation through the ankle/hindfoot. Post-contrast axial, coronal, and sagittal T1 spin echo with fat saturation through the ankle/hindfoot. COMPARISON: [facility], , MR ANKLE LT WO/W CON, 04/16/2018, 18:12. FINDINGS: Image quality: Evaluation limited by metallic susceptibility artifact from patient's postsurgical changes. Bones and joints: Extensive deformity is redemonstrated in the ankle consistent with prior distal tibial fracture with a posterior bone graft. There is also graft involving the distal fibula. Extensive fusion is also noted along the tibiotalar joint and distal tibia-fibular syndesmosis. Along the medial margin of the tibial fracture site, there are increased bony erosions with increased bone marrow edema and enhancement consistent with osteomyelitis. This extends distally into the medial aspect of the talus and posteriorly into the bone graft. Medial structures: The posterior tibialis, flexor digitorum longus, and flexor hallucis longus tendons are intact. The posterior tibial neurovascular bundle appears preserved. The deltoid ligament is attenuated consistent with sequelae of chronic degeneration. There is a soft tissue ulcer medially at the level of the distal tibial fracture site measuring approximately 0.7 by 0.8 cm. There is an underlying sinus tract which extends to the subjacent bony structures. The tract measures approximately 1.8 cm in depth, 1.4 cm in anteroposterior extent, and 1.4 cm in craniocaudal extent. Otherwise, no discrete abscess collection identified. There is adjacent medial soft tissue edema and enhancement compatible with cellulitis. Lateral structures: The anterior talofibular, calcaneofibular, and posterior talofibular ligaments appear attenuated consistent with sequelae of chronic degeneration. There is prior fusion of the distal tibial fibular syndesmosis. The peroneal tendons appear intact. Sinus tarsi demonstrates preserved fatty signal. Anterior structures: The tibialis anterior, extensor hallucis longus, and extensor digitorum longus tendons appear intact. The dorsal talonavicular ligament appears intact. Posterior and plantar structures: Achilles tendon is intact. Medial and lateral bands of the plantar fascia are of normal thickness. No abductor digiti quinti muscle atrophy to suggest Posey neuropathy. IMPRESSION: 1. Medial soft tissue ulcer demonstrated at the level of the distal tibial fracture with an associated sinus tract extending to the underlying bony structures. 2. Subjacent bony structures demonstrate bony erosions with abnormal edema and enhancement along the fracture margins consistent with osteomyelitis, involving the distal tibia as well as the proximal talus and the posterior bone graft. 3. Extensive deformity of the ankle redemonstrated consistent with posttraumatic and postsurgical changes as described. Dictated by: Alexander Montes M.D. on 04/27/2020 at 15:42 Approved by: Alexander Montes M.D. on 04/27/2020 at 16:05
== END ==
PROVIDERS: Family Provider Acupuncturist; PCP Naturopath; Referring Provider Dermatology; Visit Provider Dermatology
DX: M86.472 Chronic osteomyelitis with draining sinus, left ankle and foot (principal)
CPT/HCPCS: 73723

== ENCOUNTER → 2022-11-21 17:15 | Outpatient (ROUT) | payer MEDICARE, OTHER, SELFPAY | PROVIDERS: Family Provider Acupuncturist; PCP Naturopath; Visit Provider Dermatology | DX: S61.200A Unspecified open wound of right index finger without damage to nail, initial encounter (principal); W54.0XXA Bitten by dog, initial encounter | CPT/HCPCS: 87070; 87075; 87205 ==

== ENCOUNTER → 2023-04-26 09:03 | Outpatient (CLI) | payer MEDICARE, OTHER, SELFPAY | PROVIDERS: Family Provider Acupuncturist; PCP Naturopath; Referring Provider Naturopath; Visit Provider Surgery | DX: L97.324 Non-pressure chronic ulcer of left ankle with necrosis of bone (principal); M86.672 Other chronic osteomyelitis, left ankle and foot; L97.326 Non-pressure chronic ulcer of left ankle with bone involvement without evidence of necrosis | CPT/HCPCS: 87070; 87075; 87077; 87185; 87186; 87205; 99204; 99214 ==

== ENCOUNTER → 2023-04-27 11:44 | Outpatient (CLI) | payer MEDICARE, OTHER, SELFPAY ==
--- NOTE | 2023-04-27 12:02 | DI.MRI.S_ITS ---
PROCEDURE: MR ANKLE LT WO/W CON INDICATIONS: chronic non-healing wound on left medial ankle TECHNIQUE: Noncontrast sagittal T1 spin echo and T2 fast spin echo with fat saturation, axial proton density fast spin echo and T2 fast spin echo with fat saturation, axial T1 spin echo with fat saturation, coronal T1 spin echo and T2 fast spin echo with fat saturation through the ankle/hindfoot. Post-contrast axial, coronal, and sagittal T1 spin echo with fat saturation through the ankle/hindfoot. COMPARISON: Outside Facility, RG, XR ANKLE 3V LEFT, 08/01/2012, 11:33. [facility], MR, MR ANKLE LT WO/W CON, 04/27/2020, 9:21. FINDINGS: Image quality: Excellent. Bones and joints: Foci of micro metallic artifact are seen related to prior surgery with subsequent hardware removal. There is solid osseous bridging between the distal tibia and fibula and across the mortise joint. A sinus tract is seen extending from the medial skin surface into the tibial metaphysis as previously demonstrated. There is surrounding osseous edema and enhancement, which appears to have mildly increased in extent when compared to the MRI from 04/27/2020, now with involvement of the medial talar dome and anterior talus. The extent of edema throughout the tibia appear similar. There is mildly decreased signal in these locations on precontrast T1-weighted sequences and there is postcontrast enhancement. Mild degenerative changes are seen in the subtalar joint. Mild osseous edema is seen within the sustentaculum alcides that is new when compared to the prior exam. An 11 mm ganglion cyst is seen along the dorsal aspect of the 3rd tarsometatarsal joint. Medial structures: The deltoid ligament and portions of the spring ligament complex are not well visualized due to prior surgical changes. The posterior tibialis, flexor digitorum longus, and flexor hallucis longus tendons are intact. The posterior tibial neurovascular bundle appears normal within the tarsal tunnel. And osseous protuberance mildly narrows the tarsal tunnel. Lateral structures: There is chronic high-grade versus complete tearing of the anterior talofibular ligament. The calcaneofibular and posterior talofibular ligaments appear intact. The anterior and posterior tibiofibular ligaments appear intact. The peroneus longus and brevis tendons demonstrate normal location and morphology. The sinus tarsi demonstrates normal fatty signal. Anterior structures: The tibialis anterior, extensor hallucis longus, and extensor digitorum longus tendons appear intact. The dorsal talonavicular ligament appears intact. Posterior and plantar structures: Achilles tendon demonstrates mild tendinosis. The proximal plantar fascia is intact. There is mild fatty infiltration of the intrinsic foot musculature without disproportionate atrophy of the abductor digiti quinti muscle. IMPRESSION: 1. Skin ulceration is again seen at the medial ankle with sinus tract extending to the distal tibia, which appear similar when compared to the MRI from 04/27/2020. There is surrounding abnormal osseous signal and enhancement compatible with chronic osteomyelitis, which has mildly increased in extent when compared to the prior MRI, and now involves the more of the talus and possibly the medial calcaneus. 2. Chronic posttraumatic and postsurgical changes again seen involving the distal tibia, fibula, and mortise joint. 3. Additional stable chronic findings as described in the body of the report. Approved by: Derik Lopez M.D. on 04/28/2023 at 11:44
[2023-04-27 12:16] LABS: Hematocrit 33.8 % (36-46); Hemoglobin 11.3 g/dL (12.0-16.0); Mean Corpuscular HGB Conc 33.4 % (30-36); Mean Corpuscular Hemoglobin 31.2 PG (26-34); Mean Corpuscular Volume 93.3 fL (80-100); Platelet Count 164 X10^3/uL (150-400); Red Blood Cell Count 3.63 X10^6/uL (4.0-5.2); Red Cell Distribution Width 14.5 % (11.6-14.8); White Blood Cell Count 14.6 X10^3/uL (4.5-11.0)
[2023-04-27 12:18] LABS: Add Manual Diff / Slide Review YES
[2023-04-27 12:35] LABS: Erythrocyte Sedimentation Rate 18 MM/HR (0-20)
[2023-04-27 12:37] LABS: Neutrophils Absolute Manual 2628 /uL (3000-5900); Total Cells Counted 100
[2023-04-27 12:38] LABS: RBC Morphology Normal Morphology
[2023-04-27 12:46] LABS: Alanine Aminotransferase 19 IU/L (<35); Albumin 4.1 g/dL (3.5-5.0); Albumin Globulin Ratio 1.6 (1.0-2.8); Alkaline Phosphatase 81 U/L (38-126); Aspartate Aminotransferase 21 IU/L (14-36); BUN Creatinine Ratio 33.3 (6-22); Bilirubin Total 0.3 mg/dL (0.2-1.3); Blood Urea Nitrogen 21 mg/dL (7-17); C-Reactive Protein Quant 1.8 mg/dL (<1.0); Calcium 9.3 mg/dL (8.4-10.2); Carbon Dioxide 27 mmol/L (22-32); Chloride 105 mmol/L (98-107); Estimated Glomerular Filt Rate > 60 mL/min (>60); Globulin 2.6 g/dL (1.7-4.1); Glucose 87 mg/dL (80-110); HEMOLYSIS < 15 (0-50); Potassium 4.1 mmol/L (3.4-5.1); Sodium 139 mmol/L (137-145); Total Protein 6.7 g/dL (6.3-8.2)
== END ==
PROVIDERS: Family Provider Acupuncturist; PCP Naturopath; Referring Provider Surgery; Visit Provider Surgery
DX: S91.002A Unspecified open wound, left ankle, initial encounter (principal); L97.329 Non-pressure chronic ulcer of left ankle with unspecified severity; M89.9 Disorder of bone, unspecified; M67.472 Ganglion, left ankle and foot
CPT/HCPCS: 36415; 73723; 80053; 85007; 85025; 85651; 86140

== ENCOUNTER → 2023-05-03 09:33 | Outpatient (CLI) | payer MEDICARE, OTHER, SELFPAY | PROVIDERS: Family Provider Acupuncturist; PCP Naturopath; Referring Provider Orthopaedic Surgery Foot and Ankle Surgery; Visit Provider Surgery | DX: M86.672 Other chronic osteomyelitis, left ankle and foot (principal); L97.326 Non-pressure chronic ulcer of left ankle with bone involvement without evidence of necrosis; R60.0 Localized edema; L08.89 Other specified local infections of the skin and subcutaneous tissue; B96.20 Unspecified Escherichia coli [E. coli] as the cause of diseases classified elsewhere; B95.2 Enterococcus as the cause of diseases classified elsewhere | CPT/HCPCS: 11044; 87070; 87075; 87077; 87176; 87185; 87186; 87205; 99213 ==

== ENCOUNTER → 2023-05-10 08:59 | Outpatient (CLI) | payer MEDICARE, OTHER, SELFPAY | PROVIDERS: Family Provider Acupuncturist; PCP Naturopath; Referring Provider Orthopaedic Surgery Foot and Ankle Surgery; Visit Provider Surgery | DX: L97.324 Non-pressure chronic ulcer of left ankle with necrosis of bone (principal); M86.672 Other chronic osteomyelitis, left ankle and foot; R60.0 Localized edema | CPT/HCPCS: 11044; 99213 ==

== ENCOUNTER → 2023-05-17 09:29 | Outpatient (CLI) | payer MEDICARE, OTHER, SELFPAY | PROVIDERS: Family Provider Acupuncturist; PCP Naturopath; Referring Provider Orthopaedic Surgery Foot and Ankle Surgery; Visit Provider Surgery | DX: T81.89XA Other complications of procedures, not elsewhere classified, initial encounter (principal); S91.002A Unspecified open wound, left ankle, initial encounter; M86.672 Other chronic osteomyelitis, left ankle and foot | CPT/HCPCS: 11044 ==

== ENCOUNTER → 2023-05-19 08:59 | Outpatient (CLI) | payer MEDICARE, OTHER, SELFPAY ==
[2023-05-19 10:07] LABS: Hematocrit 34.8 % (36-46); Hemoglobin 11.7 g/dL (12.0-16.0); Mean Corpuscular HGB Conc 33.5 % (30-36); Mean Corpuscular Hemoglobin 30.9 PG (26-34); Mean Corpuscular Volume 92.3 fL (80-100); Platelet Count 184 X10^3/uL (150-400); Red Blood Cell Count 3.77 X10^6/uL (4.0-5.2)
[2023-05-19 10:11] LABS: Add Manual Diff / Slide Review YES
[2023-05-19 10:44] LABS: Neutrophils Absolute Manual 3240 /uL (3000-5900); Total Cells Counted 100
[2023-05-19 10:48] LABS: RBC Morphology Normal Morphology
[2023-05-19 10:49] LABS: Smudge Cells 1+
[2023-05-19 10:53] LABS: C-Reactive Protein Quant 1.7 mg/dL (<1.0)
== END ==
PROVIDERS: Family Provider Acupuncturist; PCP Naturopath; Referring Provider Internal Medicine Infectious Disease; Visit Provider Internal Medicine Infectious Disease
DX: M86.9 Osteomyelitis, unspecified (principal)
CPT/HCPCS: 36415; 85007; 85025; 86140

== ENCOUNTER → 2023-05-24 09:31 | Outpatient (CLI) | payer MEDICARE, OTHER, SELFPAY | PROVIDERS: Family Provider Acupuncturist; PCP Naturopath; Referring Provider Orthopaedic Surgery Foot and Ankle Surgery; Visit Provider Surgery | DX: L97.324 Non-pressure chronic ulcer of left ankle with necrosis of bone (principal); M86.672 Other chronic osteomyelitis, left ankle and foot; D72.820 Lymphocytosis (symptomatic) | CPT/HCPCS: 11044; 99212; 99213 ==

== ENCOUNTER → 2023-05-29 09:58 | Outpatient (CLI) | payer MEDICARE, OTHER, SELFPAY ==
[2023-05-29 11:42] LABS: Lactate Dehydrogenase 147 U/L (120-246)
[2023-05-29 14:17] LABS: Erythrocyte Sedimentation Rate 16 MM/HR (0-20)
[2023-05-30 10:22] LABS: IGA 21 mg/dL (64-422); IGG 965 mg/dL (586-1602); IGM 63 mg/dL (26-217)
[2023-05-31 15:58] LABS: Albumin 3.5 g/dL (2.9-4.4); Alpha-1-Globulin 0.2 g/dL (0.0-0.4); Alpha-2-Globulin 0.8 g/dL (0.4-1.0); Beta-2-Microglobulin 1.6 mg/L (0.6-2.4); Globulin Total 2.8 g/dL (2.2-3.9); Protein, Total 6.3 g/dL (6.0-8.5)
== END ==
PROVIDERS: Family Provider Acupuncturist; PCP Naturopath; Referring Provider Naturopath; Visit Provider Naturopath
DX: D72.9 Disorder of white blood cells, unspecified (principal); D64.9 Anemia, unspecified; R79.82 Elevated C-reactive protein (CRP); M86.672 Other chronic osteomyelitis, left ankle and foot
CPT/HCPCS: 36415; 82232; 82784; 83615; 84155; 84165; 85651; 88184

== ENCOUNTER → 2024-05-29 13:32 | Outpatient (ROUT) | payer MEDICARE, OTHER, SELFPAY | PROVIDERS: Family Provider Acupuncturist; PCP Student in an Organized Health Care Education/Training Program; Visit Provider Dermatology | DX: M86.179 Other acute osteomyelitis, unspecified ankle and foot (principal) | CPT/HCPCS: 87070; 87075; 87077; 87186; 87205 ==